=== PATIENT | female | born 1985 | race African-American/Black ===

== ENCOUNTER 2019-11-21 07:05 | Inpatient (IN) | payer OTHER ==
[~2019-11-21 07:05] MED LIST: ELECTROLYTE-148 SOLN 500 ML IV SCH
[2019-11-21] MEDS ORDERED: ELECTROLYTE-148 SOLN 500 ML IV SCH (08:05)
[2019-11-21] MEDS ORDERED: AMPICILLIN SODIUM 2 GM VIAL ONE (08:14)
[2019-11-21] MEDS ORDERED: OXYTOCIN 30 UNITS in 0.9% NS 30 UNIT/500 ML INFUS.BAG IVPB ONE (08:15)
[2019-11-21] MEDS: OXYTOCIN 30 UNITS in 0.9% NS 30 UNIT/500 ML INFUS.BAG IVPB SCH (08:15)
[2019-11-21 08:17] LABS: BASO % 0.4 % (0-2.0); EOS % 1.2 % (0-4.5); HEMATOCRIT 31.1 % (32.4-45.2); HEMOGLOBIN 10.2 GM/dL (10.7-15.3); LYMPH % 19.8 % (8-40); MCH 29.4 pg (25.7-33.7); MCHC 32.8 g/dl (32.0-36.0); MEAN CELL VOLUME 89.5 fl (80-96); MEAN PLT VOLUME 9.9 fl (7.5-11.1); MONO % 7.6 % (3.8-10.2); PLATELET COUNT 149 K/MM3 (134-434); RBC 3.47 M/mm3 (3.60-5.2); RDW 13.9 % (11.6-15.6); WHITE BLOOD COUNT 7.4 K/mm3 (4.0-10.0)
[2019-11-21] MEDS ORDERED: DEXTROSE 5%-LACTATED RINGERS 1,000 ML IV SCH (08:30)
[2019-11-21] MEDS ORDERED: AMPICILLIN - 2 GM in SODIUM CHLORIDE 100 ML IVPB ONE (08:30)
[2019-11-21 08:46] LABS: BLOOD UREA NITROGEN 7.5 mg/dL (7-18); CALCIUM 8.8 mg/dL (8.5-10.1); CREATININE 0.7 mg/dL (0.55-1.3); POTASSIUM 3.7 mmol/L (3.5-5.1)
[2019-11-21 08:47] VITALS: BMI 29.2
[2019-11-21 09:51] LABS: INR 0.98 (0.83-1.09); PROTHROMBIN TIME (PATIENT) 11.6 SEC (9.7-13.0)
[2019-11-21 09:54] LABS: ACTIVATED PTT 30.3 SECONDS (25.2-36.5)
[2019-11-21] MEDS ORDERED: AMPICILLIN SODIUM 1 GM VIAL ONE ×3 (11:51→20:19)
[2019-11-21] MEDS: AMPICILLIN - 1 GM in SODIUM CHLORIDE 100 ML IVPB SCH ×3 (11:57→20:30)
[2019-11-21] MEDS: ELECTROLYTE-148 SOLN 1,000 ML IV SCH (12:53)
[2019-11-21] MEDS ORDERED: FENTANYL/BUPIVACAINE/NS/PF - PCEA - 50 ML DISP.SYRIN EP ONE ×2 (14:06→18:29)
[2019-11-21] MEDS ORDERED: FENTANYL/BUPIVACAINE/NS/PF - PCEA - 50 ML DISP.SYRIN EP SCH ×2 (14:40→14:57)
[2019-11-21] MEDS ORDERED: NALOXONE HCL 0.4 MG/ML VIAL IVPUSH PRN (14:51)
[2019-11-21] MEDS ORDERED: LIDOCAINE HCL 1% PRESERVATIVE FREE - 30ML VIAL ONE (19:22)
[2019-11-21] MEDS ORDERED: OXYTOCIN 20 UNITS in 0.9% NS 20 UNIT/1,000 ML INFUS.BAG IV ONE (19:23)
--- NOTE | 2019-11-21 20:39 | HP ---
Past Medical History - Admission Chief Complaint: favarable cervix for induction History of Present Illness: n/a History Source: Patient Limitations to Obtaining History: No Limitations - Past Medical History ADMINISTRATIVE ASSISTANT FRONT DESK: No: Alzheimer's, CVA, Dementia, Migraine, Multiple Sclerosis, Peripheral Neuropathy, Parkinson's, Seizure, Syncope, TIA, Vertigo, Other Cardiovascular: No: AFIB, Aneurysm, Aortic Insufficiency, Aortic Stenosis, CAD, CHF, Deep Vein Thrombosis, HTN, Hyperlipdemia, PR, Mitral Insufficiency, Mitral Stenosis, Murmur, Pulmonary Hypertension, Other Pulmonary: No: Asthma, Bronchitis, Cancer, COPD, O2 Dependent, Pneumonia, Previously Intubated, Pulmonary Embolus, Pulmonary Fibrosis, Sleep Apnea, Other Gastrointestinal: No: Ascites, Cancer, Constipation, Crohn's Disease, Diverticulitis, Diverticulosis, Esophageal Varices, Gastritis, GERD, GI Bleed, Hemorrhoids, Hiatal Hernia, Inflamatory Bowel Disease, Irritable Bowel Disease, Pancreatitis, Peptic Ulcer Disease, Ulcerative Colitis, Other Hepatobiliary: No: Cirrhosis, Cholelithiasis, Cholecystitis, Choledocholithiasis , Hepatitis A, Hepatitis B, Hepatitis C, Other Renal/: No: Renal Failure, Renal Inusuff, BPH, Cancer, Hematuria, Hemodialysis , Neurogenic Bladder, Renal Calculi, UTI, Other Reproductive: No: Ectopic , Endometriosis, Fibroids, PID, Polycystic Ovary Syndrome, Postmenopausal, Other ...: 2 ...Para: 1 ...Term: 1 ...: 0 ...Spon : 0 ...Induced : 0 ...Multiple Gestation: 0 ...LMP: 02/10/19 ... Weeks Gestation by Dates: 40.4 ...EDC by Dates: 11/17/19 ...EDC by Sono: 11/20/19 Heme/Onc: No: Anemia, B12 Deficiency, Bleeding Disorder, Cancer, Current Chemotherapy, Current Radiation Therapy, Hemochromatosis, Hypercoaguable State, Myeloproliferative Synd, Sickle Cell Disease, Sickle Cell Trait, Thrombocytopenia, Other Infectious Disease: No: AIDS, C-Diff, Herpes Zoster, HIV, MRSA, STD's, Tuberculosis, VREF, Other Psych: No: Addictions, Anxiety, Bipolar, Depression, Panic, Psychosis, Schizophrenia, Other Musculoskeletal: No: Bursitis, Chronic low back pain, Hemiparesis, Hemiplegia, Osteoarthritis, Paraplegia, Other Rheumatology: No: Fibromyalgia, Gout, Lupus, Rheumatoid Arthritis, Sarcoidosis, Vasculitis, Other ENT: No: Allergic Rhinitis, Sinusitis, Other Endocrine: No: Delta's Disease, Geronimo's Disease, Diabetes Insipidus, Diabetes Mellitus, Hyperparathyroidism, Hyperthyroidism, Hypothyroidism, Osteopenia, SIADH, Other Dermatology: No: Basal Cell, Cellulitis, Eczema, Melanoma, Psoriasis, Squamous Cell, Other - Past Surgical History Past Surgical History: No: None, AAA Repair, AICD, Amputation, Appendectomy, Arthrosocopy, AV Fistula/Graft, Bariatric Surgery, Breast Biopsy, Bypass, CABG, Carotid Endarterectomy, Cataract Removal, Cholecystectomy, Colectomy, Colonoscopy, Colostomy, Craniotomy, , Cystectomy, Hernia Repair, Hysterectomy, Ileal Conduit, Ileosotomy, Joint Replacement, Kidney Transplant, Laminectomy, Liver Transplant, Mastectomy, Nephrectomy, Oopherectomy, Orchiectomy, Permanent Pacemaker, Prostatectomy, Splenectomy, Stent, Thoracotomy , TURP, Tonsillectomy, Tubal Ligation, Upper Endoscopy, Valve Replacement, Vasectomy, Vein Stripping/Ligation Hx Myomectomy: No Hx Transabdominal Cerclage: No - Advance Directives Advance Directives: Yes: Living Will - Smoking History Smoking history: Never smoked Have you smoked in the past 12 months: No - Alcohol/Substance Use Hx Alcohol Use: No History of Substance Use: reports: None - Social History Usual Living Arrangement: Yes: With Spouse Do you think of yourself as: Straight/Heterosexual ADL: Independent History of Recent Travel: No Home Medications - Allergies Allergies/Adverse Reactions: Allergies Allergy/AdvReac Type Severity Reaction Status Date / Time No Known Drug Allergies Allergy Verified 11/21/19 08:11 shrimp Allergy Unknown Uncoded 11/21/19 08:11 - Home Medications Home Medications: Ambulatory Orders Ferrous Sulfate 325 mg PO 11/21/19 Vitamins (Sjr) - 1 tab PO DAILY 11/21/19 Family Medical History Family History: Denies Review of Systems - Review of Systems Constitutional: reports: No Symptoms Eyes: reports: No Symptoms HENT: reports: No Symptoms Neck: reports: No Symptoms Cardiovascular: reports: No Symptoms Respiratory: reports: No Symptoms Gastrointestinal: reports: No Symptoms Genitourinary: reports: No Symptoms Breasts: reports: No Symptoms Reported Musculoskeletal: reports: No Symptoms Integumentary: reports: No Symptoms Neurological: reports: No Symptoms Endocrine: reports: No Symptoms Hematology/Lymphatic: reports: No Symptoms Psychiatric: reports: No Symptoms Physical Exam - Maternity Vital Signs: Vital Signs Temperature 98.9 F 11/21/19 20:00 Pulse Rate 85 11/21/19 18:46 Respiratory Rate 11/21/19 18:45 Blood Pressure 107/70 11/21/19 18:45 O2 Sat by Pulse Oximetry (%) 100 11/21/19 18:46 Constitutional: Yes: Well Nourished, No Distress, Calm Eyes: Yes: WNL, Conjunctiva Clear, EOM Intact HENT: Yes: WNL, Atraumatic, Normocephalic Neck: Yes: WNL, Supple, Trachea Midline Cardiovascular: Yes: WNL, Regular Rate and Rhythm Lungs: Clear to auscultation Breast(s): Yes: WNL - Abdominal Exam/OB Fundal Height: 40 Number of Fetuses: Single Presentation: Vertex Contractions: Yes Regularity: Irregular Intensity: Mild Monitor Mode: External Heart Rate (range): 150 Heart Rate Location: [facility] Category: I Accelerations: Uniform Decelerations: None - Vaginal Exam/OB Vaginal Bleediing: No Speculum Exam: No Dilatation (cm): 2 Effacement (%): 60 Amniotic Membrane Status: Intact Presentation: Vertex/Position Station: -2 - Physical Exam Musculoskeletal: Yes: WNL Extremities: Yes: WNL Edema: Yes Edema: LUE: 1+, RUE: 1+, LLE: 1+, RLE: 1+ Integumentary: Yes: WNL Deep Tendon Reflex Grade: Normal +2 ...Motor Strength: WNL Psychiatric: Yes: WNL, Alert, Oriented - Labs Lab Results: CBC, BMP 11/21/19 08:00 11/21/19 08:00 Hemorrhage Risk Assessment - Risk Factors Medium Risk Factors: Yes: None High Risk Factors: Yes: None Risk Score: 1 Risk Level: Medium Risk Assessment/Plan for arom and pitocin
--- NOTE | 2019-11-21 20:41 | PN ---
Progress Note (short form) - Note Progress Note: 130 pm 3 cm, -2, 60%, nst reactive, uc q 5 min, continue pitocin
--- NOTE | 2019-11-21 20:42 | PN ---
Progress Note (short form) - Note Progress Note: 3pm asking for epidural , , uc q 5 min, nst reactive
--- NOTE | 2019-11-21 20:43 | PN ---
Progress Note (short form) - Note Progress Note: 6 pm 6 cm , nst reactive, uc q 3 min, 905, -1, comfort w epidural. continue pitocin and epidural
--- NOTE | 2019-11-21 20:45 | PN ---
Progress Note (short form) - Note Progress Note: 8pm,8 to 9 cm, 100%, pushing soon, reactive nst
[2019-11-21] MEDS ORDERED: WITCH HAZEL 50% (TUCKS) 40 PAD/JAR PAD TP PRN (21:38)
[2019-11-21] MEDS ORDERED: METHYLERGONOVINE MALEATE 0.2 MG/1 ML AMP IM PRN (21:38)
[2019-11-21] MEDS ORDERED: BISACODYL 10 MG SUPP.RECT RC PRN (21:38)
[2019-11-21] MEDS ORDERED: oxyCODONE HCL 5 MG TABLET PO PRN (21:38)
[2019-11-21] MEDS ORDERED: BENZOCAINE 28 GM HEMORRHOIDAL OINTMENT TP PRN (21:38)
[2019-11-21] MEDS ORDERED: BENZOCAINE 20% 57 GM BOTTLE TP PRN (21:38)
--- NOTE | 2019-11-21 21:43 | PN ---
Delivery - Delivery Vaginal Delivery: No Problems (no complications) Type of Anesthesia: Epidural Episiotomy/Laceration: Right Mediolateral EBL (cc): 250 Delivery, Single - Stages of Labor Date 1st Stage Initiatied: 11/21/19 Date 2nd Stage Initiated: 11/21/19 Date of Delivery: 11/21/19 Date Placenta Delivered: 11/21/19 Placenta: Yes: Spontaneous - Condition of Infant Benefit Director/Snap Shearer Present: No Gender: Female Position: Left, OA - [place] Feeding Plan Initial Plan: Elected not to breastfeed exclusively throughout hospitalization Benefits of Exclusively reinforced: Yes
[2019-11-21] MEDS: OXYTOCIN 20 UNITS in 0.9% NS 20 UNIT/1,000 ML INFUS.BAG IV SCH (21:45)
[2019-11-21] MEDS ORDERED: IBUPROFEN 600 MG TABLET (FP) PO ONE (23:06)
[2019-11-22] MEDS: ACETAMINOPHEN 325 MG TABLET (FP) PO PRN ×2 (08:06→17:50)
[2019-11-22] MEDS: IBUPROFEN 600 MG TABLET (FP) PO PRN ×2 (08:06→17:50)
[2019-11-22 08:08] LABS: BASO % 0.3 % (0-2.0); EOS % 0.3 % (0-4.5); HEMATOCRIT 31.6 % (32.4-45.2); LYMPH % 14.8 % (8-40); MCH 28.8 pg (25.7-33.7); MCHC 31.8 g/dl (32.0-36.0); MEAN CELL VOLUME 90.8 fl (80-96); MONO % 6.9 % (3.8-10.2); NEUT % 77.7 % (42.8-82.8); PLATELET COUNT 141 K/MM3 (134-434); RBC 3.48 M/mm3 (3.60-5.2); RDW 13.9 % (11.6-15.6); WHITE BLOOD COUNT 12.4 K/mm3 (4.0-10.0)
--- NOTE | 2019-11-22 19:20 | PN ---
Post Progress Note Post Day: 1 Type of Delivery: Vital Signs: Vital Signs Temperature 97.9 F 11/22/19 18:00 Pulse Rate 80 11/22/19 18:00 Respiratory Rate 18 11/22/19 18:00 Blood Pressure 113/66 11/22/19 18:00 O2 Sat by Pulse Oximetry (%) 99 11/21/19 22:45 Breast Exam: Yes: Soft Uterus: Yes: Fundus Firm, Fundus below umbilicus, Non-tender Abdomen/GI: Yes: Abdomen soft, Passing flatus, Tolerating PO Lochia: Yes: Serosa Lochia, amount: Small Extremities: Yes: Calves non-tender Perineum: Yes: Episiotomy Activity: Ambulating (doing well, dc pt home tomorrow ) - Labs Labs: CBC WBC 12.4 K/mm3 (4.0-10.0) H 11/22/19 07:07 RBC 3.48 M/mm3 (3.60-5.2) L 11/22/19 07:07 Hgb 10.0 GM/dL (10.7-15.3) L 11/22/19 07:07 Hct 31.6 % (32.4-45.2) L 11/22/19 07:07 MCV 90.8 fl (80-96) 11/22/19 07:07 MCH 28.8 pg (25.7-33.7) 11/22/19 07:07 MCHC 31.8 g/dl (32.0-36.0) L 11/22/19 07:07 RDW 13.9 % (11.6-15.6) 11/22/19 07:07 Plt Count 141 K/MM3 (134-434) 11/22/19 07:07 MPV 11.0 fl (7.5-11.1) D 11/22/19 07:07 Absolute Neuts (auto) 9.6 K/mm3 (1.5-8.0) H 11/22/19 07:07 Neutrophils % 77.7 % (42.8-82.8) 11/22/19 07:07 Lymphocytes % 14.8 % (8-40) D 11/22/19 07:07 Monocytes % 6.9 % (3.8-10.2) 11/22/19 07:07 Eosinophils % 0.3 % (0-4.5) 11/22/19 07:07 Basophils % 0.3 % (0-2.0) 11/22/19 07:07 Nucleated RBC % 0 % (0-0) 11/22/19 07:07
--- NOTE | 2019-11-22 19:24 | DS ---
Physical Exam-MORTGAGE LOAN SPECIALIST Vital Signs: Vital Signs Temperature 97.9 F 11/22/19 18:00 Pulse Rate 80 11/22/19 18:00 Respiratory Rate 18 11/22/19 18:00 Blood Pressure 113/66 11/22/19 18:00 O2 Sat by Pulse Oximetry (%) 99 11/21/19 22:45 Constitutional: Yes: Well Nourished, No Distress, Calm Eyes: Yes: WNL, Conjunctiva Clear, EOM Intact HENT: Yes: WNL, Atraumatic, Normocephalic Neck: Yes: WNL, Supple, Trachea Midline Cardiovascular: Yes: WNL, Regular Rate and Rhythm Respiratory: Yes: WNL, Regular, CTA Bilaterally Gastrointestinal: Yes: WNL, Normal Bowel Sounds, Soft ...Rectal Exam: Yes: WNL Renal/: Yes: WNL Pelvis: Yes: WNL External Genitalia: Yes: Normal Internal Exam Deferred: No Vaginal Exam: Yes: Normal Cervix: Yes: Normal Uterus: Yes: Normal Adnexa: Normal: Bilateral ....Post : Yes: Uterus firm, Uterus non-tender Breast(s): Yes: WNL Musculoskeletal: Yes: WNL Extremities: Yes: WNL Edema: Yes Edema: LUE: 1+, RUE: 1+, LLE: 1+, RLE: 1+ Integumentary: Yes: WNL Wound/Incision: Yes: Clean/Dry, Well Approximated Neurological: Yes: WNL, Alert, Oriented ...Motor Strength: WNL Psychiatric: Yes: WNL, Alert, Oriented Labs: CBC, BMP 11/22/19 07:07 11/21/19 08:00 Delivery - Delivery Vaginal Delivery: No Problems (no complications) Type of Anesthesia: Epidural Episiotomy/Laceration: Right Mediolateral EBL (cc): 250 Delivery, Single - Stages of Labor Date 1st Stage Initiatied: 11/21/19 Date 2nd Stage Initiated: 11/21/19 Time 2nd Stage Initiated: 21:00 Date of Delivery: 11/21/19 Time of Delivery: 21:21 Time Placenta Delivered: 21:30 Placenta: Yes: Spontaneous - Condition of Infant Forms Analyst/Carriage Operator Present: No Gender: Female Weight: 3.232 kg Position: Left, OA Total Hours ROM (Hrs/Mins): 8h1m - 1 Minute Total Score: 9 5 Minutes Total Score: 9 - [place] Feeding Plan Initial Plan: Elected not to breastfeed exclusively throughout hospitalization Benefits of Exclusively reinforced: Yes Discharge Summary Problems reviewed: Yes Reason For Visit: INDUCTION OF LABOR Procedures: Principal: Other Procedures: none Hospital Course: uneventful Health Concerns: none Plan of Treatment: oob as much as possible Condition: Good - Instructions Diet, Activity, Other Instructions: Physical activity Resume your normal everyday activity as tolerated no heavy lifting or exercise until seen by your surgeon. You may walk unlimited yina of and climb stairs. You may resume driving the car when you feel safe and comfortable behind the wheel. No sexual activity as instructed. Wound care If you have a bandage, leave it on, and keep dry for 48-72 hours. After that time discard the outer bandage. If they are tapes on the skin under the out of bandage leave them in place. They will peel off in the next 7 to 10 days. Do Not Peel them off. You may shower the day after surgery. If there are tapes present on the skin, you may shower over them. Diet There are no dietary restrictions. Eat healthy, high-fiber foods. Drink 6 to 8 glasses of liquid each day. This will assist in keeping your bowels are regular. Pain management You may take Tylenol or acetaminophen or Ibuprofen (for example, Motrin, Advil etc.) from my pain prescription medication is ordered should be taken as prescribed for moderate to severe pain. Call MD for any of the following: call dr gale [phone] for 6 weeks appointment Severe pain not relieved by medication Fever of 101 or higher Excessive bleeding or drainage on dressing Inability to urinate Disposition: HOME - Home Medications Comprehensive Discharge Medication List: Ambulatory Orders Ferrous Sulfate 325 mg PO 11/21/19 Vitamins (Sjr) - 1 tab PO DAILY 11/21/19 Prescription Drug Monitoring Program (I-STOP) results: I-STOP reviewed and no issues identified
[2019-11-22] MEDS ORDERED: SENNOSIDES/DOCUSATE COMBO (SENNA PLUS) TABLET (UD) PO PRN (22:00)
[2019-11-23] MEDS: OXYTOCIN 30 UNITS in 0.9% NS 30 UNIT/500 ML INFUS.BAG IVPB SCH (03:34)
[2019-11-23] MEDS: ELECTROLYTE-148 SOLN 1,000 ML IV SCH (03:34)
[2019-11-23] MEDS: OXYTOCIN 20 UNITS in 0.9% NS 20 UNIT/1,000 ML INFUS.BAG IV SCH (03:34)
[2019-11-23] MEDS: ACETAMINOPHEN 325 MG TABLET (FP) PO PRN (08:31)
[2019-11-23] MEDS: IBUPROFEN 600 MG TABLET (FP) PO PRN (08:32)
[2019-11-23 10:17] VITALS: BP 102/66; PULSE 80; TEMP 97.9
== END 2019-11-23 13:30 | disposition home or self-care (01) | DRG 560 ==
LOC: JLDR 07:05 → J3W 23:15
PROVIDERS: ADMIT Obstetrics & Gynecology; ATTEND Obstetrics & Gynecology
PROC: 0W8NXZZ Division of Female Perineum, External Approach (ICD-10-PCS; principal; 2019-11-21)
PROC: 10E0XZZ Delivery of Products of Conception, External Approach (ICD-10-PCS; 2019-11-21)
PROC: 10907ZC Drainage of Amniotic Fluid, Therapeutic from Products of Conception, Via Natural or Artificial Opening (ICD-10-PCS; 2019-11-21)
DX: O48.0 Post-term pregnancy (principal); Z3A.40 40 weeks gestation of pregnancy; Z37.0 Single live birth
CPT/HCPCS: 36415; 59409; 80048; 85025; 85610; 85730; 86593; 86850; 86900; 86901; 87389